=== PATIENT | female | born 1995 | race Caucasian/White ===

== ENCOUNTER 2019-04-19 14:14 | Emergency (ER) | payer OTHER ==
[2019-04-19 14:21] VITALS: BP 129/77
--- NOTE | 2019-04-19 14:42 | ED Physician Documentation ---
PD HPI OPHTHO - Stated complaint Stated Complaint: LT EAR PX - Chief complaint Chief Complaint: Heent - History obtained from History obtained from: Patient - History of Present Illness Timing - onset: Last night (Left ear pain for a day with muffled hearing. No URI symptoms or fever. She also notes that she may have scratched her eye 2 weeks ago and has very mild persistent visual deficit.) Review of Systems Constitutional: denies: Fever, Chills Eyes: denies: Loss of vision, Decreased vision, Photophobia, Discharge, Irritation Ears: reports: Ear pain. denies: Loss of hearing, Drainage/discharge PD PAST MEDICAL HISTORY - Present Medications Home Medications: Ambulatory Orders Medication Instructions Recorded Confirmed Amox/Clav 875/125 [Augmentin] 1 each PO Q12H #20 tablet 04/19/19 - Allergies Allergies/Adverse Reactions: Allergies Allergy/AdvReac Type Severity Reaction Status Date / Time erythromycin base Allergy Unknown Verified 04/19/19 14:18 PD ED PE NORMAL - Vitals Vital signs reviewed: Yes - General General: Alert and oriented X 3, No acute distress - HEENT HEENT: PERRL, EOMI, Other (Fluorescein examination is normal in the right; Severe left otitis media) - Neuro Neuro: Alert and oriented X 3, Normal speech Results - Vitals Vitals: Vital Signs - 24 hr 04/19/19 14:18 Temperature 36.6 C Heart Rate 95 Respiratory 15 Rate Blood Pressure 129/77 O2 Saturation 100 Oxygen O2 Source Room air Departure - Departure Disposition: 01 Home, Self Care Clinical Impression: LOM (left otitis media) Qualifiers: Otitis media type: suppurative Chronicity: acute Recurrence: not specified as recurrent Spontaneous tympanic membrane rupture: without spontaneous rupture Qualified Code(s): H66.002 - Acute suppurative otitis media without spontaneous rupture of ear drum, left ear Condition: Good Record reviewed to determine appropriate education?: Yes Instructions: ED Otitis Media Acute Adult Follow-Up: Iglesia Malave MD [Provider Admit Priv/Credential] - Within 1 week Prescriptions: Amox/Clav 875/125 [Augmentin] 1 each PO Q12H #20 tablet Comments: Call your doctor to arrange a follow-up appointment, make the next available appointment. In the interim, return anytime if worse or if new symptoms develop.
== END 2019-04-19 15:03 | disposition home or self-care (01) ==
LOC: ED 14:14
DX: H66.002 Acute suppurative otitis media without spontaneous rupture of ear drum, left ear (principal)
CPT/HCPCS: 99282; 99283

== ENCOUNTER 2019-11-07 16:39 | Outpatient (CLI) | payer OTHER ==
--- NOTE | 2019-11-07 19:24 | MRI Report ---
Reason: RT KNEE PAIN Procedure Date: 11/07/2019 Accession Number: [id number] / [id number] Procedure: MRI - Knee RT W/O CPT Code: Final Report FULL RESULT: EXAM: RIGHT KNEE MRI WITHOUT CONTRAST EXAM DATE: 11/07/2019 06:11 PM. CLINICAL HISTORY: RT KNEE PAIN. Injured knee skiing in August. Audible popping and medial knee pain. COMPARISON: None. TECHNIQUE: Multiplanar, multisequence T1-weighted and fluid-sensitive sequences of the knee without contrast. Other: None. FINDINGS: Bones: Well marginated osseous lesion medial femoral condyle 1.3 x 1.0 x 1.5 cm which is of increased signal on the proton density fat saturation sequence and intermediate signal on the T1-weighted sequence. Probable benign cartilaginous lesion or enchondroma.. Articular Cartilage: Unremarkable. Medial Meniscus: The medial meniscus is intact. Lateral Meniscus: The lateral meniscus is intact. Cruciate Ligaments: The anterior and posterior cruciate ligaments are intact. Collateral Ligaments: Remote grade 1 sprain medial collateral ligament. Intact fibular collateral ligament. Tendons: The quadriceps, patellar, semimembranosus, and popliteus tendons are unremarkable. Musculature: No edema or fatty atrophy. Other: Small collection lateral patellar recess.. No popliteal cyst. No loose bodies. The medial and lateral retinacula are intact. The subcutaneous tissues and fat pads are unremarkable. IMPRESSION: 1. Negative for meniscus tear or internal derangement. 2. Remote grade 1 sprain medial collateral ligament. 3. Endosteal benign cartilaginous lesion or cyst 1.0 x 1.3 x 1.5 cm medial femoral condyle physis. [facility]
== END 2019-11-07 16:40 | disposition home or self-care (01) ==
LOC: DI 16:39
PROVIDERS: ATTEND Physician Assistant
DX: M25.561 Pain in right knee (principal); M89.9 Disorder of bone, unspecified

== ENCOUNTER 2019-12-25 08:00 | Outpatient (CLI) | payer OTHER | END 2019-12-25 23:59 | disposition home or self-care (01) | LOC: LAB.R 08:00 | PROVIDERS: ATTEND Advanced Practice Midwife | DX: N39.0 Urinary tract infection, site not specified (principal) | CPT/HCPCS: 87086 ==

== ENCOUNTER 2019-12-30 08:00 | Outpatient (CLI) | payer OTHER ==
[2019-12-30 21:05] LABS: CANDIDA GROUP DNA NEGATIVE (NEGATIVE); CANDIDA KRUSEI DNA NEGATIVE (NEGATIVE); TRICHOMONAS VAGINALIS DNA NEGATIVE (NEGATIVE)
== END 2019-12-30 08:01 | disposition home or self-care (01) ==
LOC: LAB.R 08:00
PROVIDERS: ATTEND Advanced Practice Midwife
DX: Z00.00 Encounter for general adult medical examination without abnormal findings (principal); N76.0 Acute vaginitis
CPT/HCPCS: 87661; 87801